=== PATIENT | female | born 1935 | race Caucasian/White ===

== ENCOUNTER 2017-01-01 15:07 | Observation (INO) | payer MEDICARE, BC ==
--- OUTSIDE RECORDS SUMMARY | 2017-01-01 15:11 | XMS REPORT | Continuity of Care Document ---
:1935 Author Organization [facility] ([facility]) Address [place] [address] Phone [phone] Care Team Providers Name Role Phone Gideon Mosley Primary Care Provider [phone] Source Comments This disclosure is being made pursuant to the Care Everywhere program, applicable federal and state laws, and may not contain all informaitonavailable regarding this patient.[facility] ([facility]) Active Allergies and Adverse Reactions Allergen Noted Date Severity Reactions Comments Penicillins 04/28/2015 Urticaria (Hives) Current Medications Prescription Sig. Disp. Refills Start Date End Date Status diphenhydrAMINE take 2 capsule 03/20/2012 Active (BENADRYL) 25 mg capsule (50MG) by oral route every 4 - 6 hours as needed furosemide 40 mg tablet take 2 Tablet by 07/06/2014 Active oral route every day HYDROcodone-acetaminophen take 1 tablet by 05/27/2014 Active 5-325 mg per tablet oral route every 6 hours as needed for pain metoPROLol succinate 50 take 1.5 Tablet 05/20/2013 Active mg XL tablet (75MG) by oral route every day pantoprazole 40 mg EC take 1 tablet 03/20/2012 Active tablet (40MG) by oral route every day simvastatin 20 mg tablet take 1 tablet 03/20/2012 Active (20MG) by oral route every day in the evening warfarin 5 mg tablet take 1 tablet (5MG) 03/20/2012 Active by oral route every day levothyroxine 100 mcg Take 100 mcg by Active tablet mouth every morning before breakfast Active Problems Problem Noted Date Chronic atrial fibrillation 05/25/2015 Cardiomyopathy 05/25/2015 Mitral regurgitation 05/25/2015 Pulmonary hypertension 05/25/2015 Essential hypertension 05/25/2015 Hyperlipidemia 05/25/2015 Social History Tobacco Use Types Packs/Day Years Used Date Former Smoker Smokeless Tobacco: Never Used Tobacco Cessation:Counseling Given: Yes Comments: Last Filed Vital Signs Vital Sign Reading Time Taken Blood Pressure 120/78 05/26/2015 1:41 PM CDT Pulse 58 05/26/2015 1:41 PM CDT Temperature - - Respiratory Rate 19 05/26/2015 1:41 PM CDT Height 1.6 m (5' 3") 05/26/2015 1:41 PM CDT Weight 76 kg (167 lb 8.8 oz) 05/26/2015 1:41 PM CDT Body Mass Index 29.69 05/26/2015 1:41 PM CDT Oxygen Saturation - - Plan of Care Health Maintenance Due Date Last Done Comments Hepatitis B Vaccine (1 of 3 - Primary Series) 1935 Tdap Vaccine 1946 Lipid Disorder Screening 1953 Td Vaccine 1953 Colonoscopy 09/30/1985 Zoster Vaccine 1995 Osteoporosis Screening (DXA Bone Density) 2000 Pneumococcal Vaccine (1 of 2 - PCV13) 2000 Influenza Vaccine: Seasonal (#1) 03/27/2016 Results from Last 3 Months Not on file
[2017-01-01 15:47] LABS: Hematocrit 37.5 % (37.0-47.0); Hemoglobin 12.6 gm/dL (12.5-16.0); Mean Cell Volume 94.7 fl (78-100); Mean Corpuscular Hemoglobin 31.8 pg (27-31); Mean Corpuscular Hgb Conc 33.6 g/dl (32-36); Mean Platelet Volume 10.3 fl (6.0-9.5); Neutrophil # 3.4 K/mm3 (1.3-6.0); Neutrophil % 58.2 % (42-75.0); Platelet Count 209 K/mm3 (150-450); Red Blood Count 3.96 M/mm3 (4.2-5.4); Red Cell Distribution Width 13.3 % (11.5-14.0); White Blood Count 5.8 K/mm3 (4.0-10.5)
[2017-01-01 15:59] LABS: Prothrombin Time (Patient) 11.8 Seconds (9.4-11.4)
[2017-01-01 16:02] LABS: Albumin * 3.7 gm/dl (3.4-5.0); Anion Gap 9.3 mmol/L (6.8-13.8); BUN/Creatinine Ratio 16.4 (9.0-21.6); Bilirubin, Total 0.4 mg/dL (0.0-1.1); Ca. Corrected For Albumin 9.3 mg/dL (8.4-10.2); Calcium * 9.4 mg/dL (7.9-10.9); Carbon Dioxide 32.5 mmol/L (24-32.6); Potassium 3.8 mmol/L (3.4-4.6); Total Protein 7.8 gm/dL (6.2-8.2)
[2017-01-01] MEDS ORDERED: HYDROcodone/ACETAMINOPHEN 1 EACH TABLET PO PRN (16:18)
[2017-01-01] MEDS ORDERED: PANTOPRAZOLE SODIUM 40 MG in NORMAL SALINE 100 ML IV SCH (16:30)
[2017-01-01 16:40] LABS: INR 1.13 INR (0.90-1.10)
[2017-01-01] MEDS: DEXTROSE 5%-0.5 NORMAL SALINE 1,000 ML IV PRN (17:24)
--- NOTE | 2017-01-01 18:28 | CONS ---
[facility] - General Date of Service: 01/01/17 Narrative: I have been asked to render an opinion regarding this very pleasant 81 y/o woman who presents with BRBPR after recently starting Eliquis. She has not had a bloody movement since this AM. Her vitals are stable. No dramatic drop in hematocrit. She has had longstanding hemorrhoid disease since the of her two children and has intermittent bleeding. She doesn't think this bleeding is of the same sort as her hemorrhoids. Source: patient, RN/MD, old records Exam Limitations: no limitations - History of Present Illness Allergies/Adverse Reactions: Allergies adhesive tape Allergy (Verified 01/01/17 15:49) Latex, Natural Rubber Allergy (Verified 01/01/17 15:49) Penicillins Allergy (Verified 01/01/17 15:49) Hives Home Medications: Home Medications Medication Instructions Recorded Last Taken Furosemide [Lasix] 40 mg PO DAILY 12/09/14 Unknown HYDROcodone/ACETAMINOPHEN [[place] 1 - 2 tab PO QID PRN 12/09/14 Unknown 5-325] Levothyroxine Sodium [Levoxyl] 100 mcg PO DAILY 12/09/14 12/31/16 07:00 Metoprolol Succinate [Toprol Xl] 75 mg PO DAILY 12/09/14 12/31/16 21:00 Pantoprazole Sodium [Protonix] 40 mg PO DAILY 12/09/14 Unknown Simvastatin [Zocor] 20 mg PO HS 12/09/14 Unknown Apixaban [Eliquis] 5 mg PO BID 01/01/17 01/01/17 07:00 - Patient's Past Medical History Patient History - Medical: Arthritis, GERD, Hypothyroidism Patient History - Cardiac/Respiratory: Atrial Fibrillation Patient History - Cancer: No Hx of Cancer Patient History - Surgical Procedures: Hysterectomy Patient History - Other: None LMP (females 10-50): Menopausal - Family History Mother Family History - Medical: , No pertinent hx Family History - Cardiac/Respiratory: CVA/Stroke Family History - Cancer: No pertinent family hx Father Family History - Medical: , Alcohol Abuse Family History - Cardiac/Respiratory: No pertinent hx Family History - Cancer: No pertinent family hx Brother Family History - Medical: No pertinent hx Family History - Cardiac/Respiratory: No pertinent hx Family History - Cancer: No pertinent family hx Sister Family History - Medical: Rheumatoid Arthritis Family History - Cardiac/Respiratory: No pertinent hx Family History - Cancer: No pertinent family hx - Social History Living Situations: alone Abuse History: No History of abuse Psych History: No pertinent hx Smoking Status: Former smoker Have you smoked in the past 12 months: No Do you dip or chew tobacco: No Smoking Stop Date: 08/27/00 Alcohol Use: none Drug Use: none - Immunizations Immunizations Up to Date: Yes Procedures ANESTH INJECT-SPIN CANAL (02/03/08) INJECT STEROID (02/03/08) SPINAL CANAL INJECT NEC (02/03/08) Medications - Medications Current Medications: Current Medications Dextrose/Sodium Chloride (Dextrose 5%-0.45%Ns) 1,000 mls @ 75 mls/hr IV .[id number] PRN PRN Reason: HYDRATION Stop: 01/31/17 16:18 Last Admin: 01/01/17 17:24 Dose: 75 mls/hr Pantoprazole Sodium 40 mg/ (Sodium Chloride) 100 mls @ 400 mls/hr IV Q24H WILLIE Stop: 01/31/17 16:31 Last Admin: 01/01/17 17:28 Dose: 400 mls/hr Review of Systems - Review of Systems Abdominal: Present: Bright blood from rectum Neurological: Present: Other - lightheadedness Misc: All systems neg except as marked Physical Examination - Exam Vital Signs: Vital Signs - Last Taken Temp 36.5 C 01/01/17 15:46 Pulse 94 01/01/17 15:46 Resp 16 01/01/17 15:46 BP 165/90 01/01/17 15:46 Pulse Ox 96 01/01/17 15:46 O2 Oxygen Delivery Method Room Air Constitutional: Present: Alert, Oriented x3, Cooperative, Well developed, Well nourished ENT Exam: Present: normal ENT inspection Neck: Present: normal inspection Respiratory: Present: no respiratory distress /Rectal: Present: hemorrhoids, Other - Extensive hemorrhoidal changes. Large and numerous external hemorrhoidal skin tags with with squamous maceration at anal verge. Erythematous/irritated internal hemorrhoids especially left posterior column. No active bleeding - Results and Findings: Lab/Microbiology results last 24 hrs: Abnormal/Pending Laboratory Last 24 HRS 01/01/17 01/01/17 01/01/17 15:30 15:30 15:30 RBC 3.96 L MCH 31.8 H MPV 10.3 H Monocytes % 9.5 H PT 11.8 H INR (Anticoag Therapy) 1.13 H Sodium 144 H Plasma Sodium 144 H Est GFR (Non-Af Amer) 51 L D - Assessments/Findings (1) Rectal bleeding Diagnosis(s): Likely source for her current bleeding is her hemorrhoidal disease. Currently no active bleeding, therefore instrumentation is avoided at this time. Problem: Acute
[2017-01-01] MEDS ORDERED: SIMVASTATIN 20 MG TABLET PO SCH (21:00)
[2017-01-01] MEDS ORDERED: METOPROLOL SUCCINATE 25 MG TABLET.SA PO SCH (23:30)
[2017-01-01 23:40] LABS: Hematocrit 34.8 % (37.0-47.0); Hemoglobin 11.6 gm/dL (12.5-16.0)
[2017-01-02] MEDS: DEXTROSE 5%-0.5 NORMAL SALINE 1,000 ML IV PRN (06:54)
[2017-01-02] MEDS ORDERED: LEVOTHYROXINE SODIUM 100 MCG TABLET PO SCH (07:00)
[2017-01-02] MEDS ORDERED: FUROSEMIDE 40 MG TABLET PO SCH (09:00)
[2017-01-02] MEDS ORDERED: METOPROLOL SUCCINATE 25 MG TABLET.SA PO SCH (09:00)
--- NOTE | 2017-01-02 09:03 | DS ---
(1) BRBPR (bright red blood per rectum) Problem: Resolved (2) Lightheadedness Problem: Resolved (3) Cardiomyopathy Problem: Chronic Qualifiers: Cardiomyopathy type: unspecified Qualified Code(s): I42.9 - Cardiomyopathy , unspecified (4) Hypertension Problem: Chronic Qualifiers: Hypertension type: essential hypertension Qualified Code(s): I10 - Essential (primary) hypertension (5) Atrial fibrillation Problem: Chronic Qualifiers: Atrial fibrillation type: chronic Qualified Code(s): I48.2 - Chronic atrial fibrillation Description of Stay: Rosario Rojas, is an 81-year-old white female, with previous medical history of chronic atrial fibrillation, hypertension, hypothyroidism, cardiomyopathy and chronic renal failure stage III who was seen in my office on 01/01/2017 because of bright red blood per rectum after bowel movement lightheadedness and dizziness. The patient was started on eliquis on 12/23/2016 per her request after being on Coumadin for some time for her chronic atrial fibrillation. Ever since starting Eliquis, the patient said that she has noticed some bloodshot eyes and facial swelling after taking it. On the morning of admission the patient, around 7 AM noticed bright red blood per rectum . It was dripping into her toilet bowl and filled 2 tissues pads. She still took her morning Eliquis after that. She was then told to go to our office and was admitted for observation. Eliquis was put on hold she did not have any more bright red blood per rectum since admission her hemoglobin has been stable her CT scan of her head did not show any intracranial bleeding. A surgical consult was obtained and surgery feels that her bleeding was from her hemorrhoids. We will discharge patient today and to restart her on anticoagulation as the risk of clot outweighs the risk of bleeding in her case after some time. However instead of restarting her back on Eliquis, we will restart her back on Coumadin as she could be allergic to it as well. . Procedures Performed: none Discharge Disposition: Home self care Disposition: Home self-care Condition: Good Discharge Activity: Activity as tolerated Discharge Diet: Low salt Referrals: Cuate Rees MD [Primary Care Provider] - Additional Patient Instructions (free text): Follow up with PCP on Sunday. Complete Home Medications List: Complete Home Medication List: Furosemide [Lasix] 40 mg PO DAILY 12/09/14 HYDROcodone/ACETAMINOPHEN [[place] 5-325] 1 - 2 tab PO QID PRN 12/09/14 Levothyroxine Sodium [Levoxyl] 100 mcg PO DAILY 12/09/14 Metoprolol Succinate [Toprol Xl] 75 mg PO DAILY 12/09/14 Pantoprazole Sodium [Protonix] 40 mg PO DAILY 12/09/14 Simvastatin [Zocor] 20 mg PO HS 12/09/14
[2017-01-02 09:58] LABS: Hematocrit 35.4 % (37.0-47.0); Hemoglobin 11.9 gm/dL (12.5-16.0)
[2017-01-02 10:31] VITALS: BP 146/88
== END 2017-01-02 13:15 | disposition home or self-care (01) ==
LOC: MS 15:07
PROVIDERS: ADMIT Internal Medicine; ATTEND Internal Medicine
DX: K62.5 Hemorrhage of anus and rectum (principal); I42.9 Cardiomyopathy, unspecified; I10 Essential (primary) hypertension; I48.2 Chronic atrial fibrillation; I12.9 Hypertensive chronic kidney disease with stage 1 through stage 4 chronic kidney disease, or unspecified chronic kidney disease; N18.3 Chronic kidney disease, stage 3 (moderate); Z87.891 Personal history of nicotine dependence
CPT/HCPCS: 36415; 70450; 80053; 82272; 85014; 85018; 85025; 85610; 96365; 96366; G0378; G0379